=== PATIENT | female | born 1980 | race Caucasian/White ===

== ENCOUNTER 2021-09-27 13:11 | Emergency (ER) | payer OTHER ==
[2021-09-27 13:42] VITALS: PULSE 74; O2SAT 98
[2021-09-27] MEDS ORDERED: TORAdol 30 mg Injection IM ONE (13:54)
[2021-09-27] MEDS ORDERED: TORAdol 30 mg Injection ONE (13:55)
--- NOTE | 2021-09-27 14:00 | ERPHSYRPT ---
- History of Present Illness Source: patient Exam Limitations: no limitations Patient Subjective Stated Complaint: Got sunburned all over body d/t being out in sun at softball game yesterday. Triage Nursing Assessment: Patient c/o sunburn to face, arms, legs, s/p being out in sun all day yesterday. States very painful, has no other complaints. States various burn creams used with little improvement in pain. AAox3, walked in, pleasant mood, redness to face, arms, and legs noted. Physician History: 41 yo wf w 1st degree sunburn of face/chest/legs/arms. Pt denies nausea/fever and is able to hold down fluids. She watched several softball games yesterday wo sunscreen. Timing/Duration: yesterday Quality: burning Severity: mild Location: generalized Possible Causes: other (Sunburn) Associated Symptoms: No blisters, No change in skin texture, No difficulty breathing, No edema, No fever, No flushing, No headache, No hives, No jaundice, No malaise, No nasal congestion, No numbness, No pallor, No paresthesia, No petechiae, No rash, No sore throat Allergies/Adverse Reactions: No Known Drug Allergies Allergy (Verified 10/20/14 03:07) Home Medications: Ibuprofen [Advil] 3 tab PO Q6H PRN PRN 02/09/15 [History] Hx Tetanus, Diphtheria Vaccination/Date Given: No Hx Influenza Vaccination/Date Given: No Hx Pneumococcal Vaccination/Date Given: No Travel Risk - International Travel Have you traveled outside of the country in past 3 weeks: No - Coronavirus Screening Are you exhibiting any of the following symptoms?: No Close contact with a COVID-19 positive Pt in past 14-21 Days: No - Vaccine Status Have you recieved a Covid-19 vaccination: No - Review of Systems Constitutional: No Symptoms Eyes: No Symptoms Ears, Nose, & Throat: No Symptoms Respiratory: No Symptoms Cardiac: No Symptoms Abdominal/Gastrointestinal: No Symptoms Genitourinary Symptoms: No Symptoms Musculoskeletal: No Symptoms Neurological: No Symptoms Psychological: No Symptoms Endocrine: No Symptoms Hematologic/Lymphatic: No Symptoms Immunological/Allergic: No Symptoms - Past Medical History Pertinent Past Medical History: Yes Neurological History: No Pertinent History ENT History: No Pertinent History Cardiac History: No Pertinent History Respiratory History: No Pertinent History Endocrine Medical History: No Pertinent History Musculoskeletal History: Other GI Medical History: No Pertinent History History: No Pertinent History Psycho-Social History: Anxiety, Depression Female Reproductive Disorders: No Pertinent History Other Medical History: lupus and hosrt term memory loss, hx of uti's - Past Surgical History Past Surgical History: Yes Neuro Surgical History: No Pertinent History Cardiac: No Pertinent History Respiratory: No Pertinent History Gastrointestinal: No Pertinent History Genitourinary: No Pertinent History Musculoskeletal: No Pertinent History Female Surgical History: Section, Other Other Surgical History: 2 and a d&c in september 2014 - Social History Smoking Status: Never smoker Exposure to second hand smoke: No Drug Use: none Patient Lives Alone: No Significant Family History: no pertinent family hx - Female History Hx Last Menstrual Period: depo provera injection Hx Now: No - Nursing Vital Signs Nursing Vital Signs: Initial Vital Signs Temperature 98.5 F 09/27/21 13:29 Pulse Rate 74 09/27/21 13:29 Respiratory Rate 16 09/27/21 13:29 Blood Pressure 129/91 09/27/21 13:29 O2 Sat by Pulse Oximetry 98 09/27/21 13:29 Pain Scale Pain Intensity 9 WNL - Physical Exam General Appearance: no apparent distress Eye Exam: PERRL/EOMI, eyes nml inspection Ears, Nose, Throat Exam: normal ENT inspection, TMs normal, pharynx normal, brandin st mucous membranes Neck Exam: normal inspection, non-tender, supple, full range of motion, No meningismus, No mass, No Brudzinski, No Kernig's Respiratory Exam: normal breath sounds, lungs clear, airway intact Cardiovascular Exam: regular rate/rhythm, normal heart sounds, normal peripheral pulses, capillary refill <2 sec, No murmur Gastrointestinal/Abdomen Exam: soft, normal bowel sounds, No tenderness Back Exam: normal inspection, normal range of motion Extremity Exam: other (1st degree solar johansen to B upper/lower extremities) Neurologic Exam: alert, oriented x 3, cooperative, shipping manager II-XII nml as tested, normal mood/affect, nml cerebellar function, nml station & gait, sensation nml, No motor deficits, No sensory deficit Skin Exam: other (1st degree solar johansen to chest/face/upper-lower ex tremities/No bullae) SpO2 Interpretation: normal SpO2: 98 O2 Delivery: Room Air - Course Nursing assessment & vital signs reviewed: Yes Ordered Tests: Medication Summary Discontinued Medications Generic Name Dose Route Start Last Admin Trade Name Ritchie PRN Reason Stop Dose Admin Ketorolac Tromethamine 60 mg 09/27/21 13:54 09/27/21 14:06 Ketorolac Tromethamine 30 Mg/Ml Inj IM 09/27/21 13:55 60 mg STAT ONE Administration Ketorolac Tromethamine Confirm 09/27/21 13:55 Ketorolac Tromethamine 30 Mg/Ml Inj Administered 09/27/21 13:56 Dose 60 mg .ROUTE .STK-MED ONE - Progress Progress Note: 09/27/21 13:59 60mg IM Toradol Counseled pt/family regarding: diagnosis, need for follow-up - Departure Departure Disposition: Home Clinical Impression: Sunburn of first degree Condition: Stable Critical Care Time: No Referrals: MELANIA RAZO MD [Primary Care Provider] - Follow up/PCP as directed Instructions: Play It Safe in the Sun, Sunburn (DC) Additional Instructions: Aloe gel Drink plenty of fluids Motrin 400mg every 6hours as needed/Tylenol every 6 hours
[2021-09-27 14:20] VITALS: BP 131/67
== END 2021-09-27 14:14 | disposition home or self-care (01) ==
LOC: ED 13:11
DX: L55.0 Sunburn of first degree (principal)
CPT/HCPCS: 96372; 99283; J1885

== ENCOUNTER 2023-10-05 07:43 | Emergency (ER) | payer OTHER ==
--- NOTE | 2023-10-05 07:46 | ERPHSYRPT ---
- History of Present Illness Time Seen by Provider: 10/05/23 07:46 Historian: patient Exam Limitations: no limitations Physician History: This is a 43-year-old white female patient of Dr. Razo who has a history of migraine headaches, peripheral neuropathy, asthma, fibromyalgia, anxiety, depression and systemic lupus erythematosus and presents to the emergency room with palpitation sensation in her chest as well as lower bilateral chest pain. Pain intermittently radiates into her back between her scapulae. She denies shortness of breath. She has not had a fever or cough. She has had no nausea vomiting or diarrhea symptoms. Patient states she is never had this type of sensation before. However, in the last 3 weeks she has noticed the symptoms intermittently. Symptoms are worse when lying flat and improve and even resolve when standing upright. Patient's gallbladder is still in place. Patient ate brawtwurst sausage last evening. Timing/Duration: today Activities at Onset: rest Quality: sharpness Location: other (Merrily bilateral lower chest) Chest Pain Radiation: back (Between her scapulae) Severity of Pain-Max: mild Severity of Pain-Current: mild Modifying Factors: Improves With: lying down (Worsens), change in position (Standing up improves) Associated Symptoms: palpitations, No abdominal pain, No shortness of breath Prior Chest Pain/Cardiac Workup: no prior chest pain Nitro Today/Relief: no nitro taken today Aspirin Treatment Today: 81 mg x 4, provided by ED Allergies/Adverse Reactions: No Known Drug Allergies Allergy (Verified 10/05/23 07:44) Home Medications: Ibuprofen [Advil] 3 tab PO Q6H PRN PRN 02/09/15 [History] Propranolol HCl [Propranolol HCl ER] 60 mg PO DAILY 10/05/23 [History] Hx Tetanus, Diphtheria Vaccination/Date Given: No Hx Influenza Vaccination/Date Given: No Hx Pneumococcal Vaccination/Date Given: No Travel Risk - International Travel Have you traveled outside of the country in past 3 weeks: No - Emerging Infectious Disease Are you exhibiting symptoms associated with any current EIDs: No - Review of Systems Constitutional: No Symptoms Eyes: No Symptoms Ears, Nose, & Throat: No Symptoms Respiratory: No Symptoms Cardiac: Chest Pain, Palpitations Abdominal/Gastrointestinal: No Symptoms Genitourinary Symptoms: No Symptoms Musculoskeletal: No Symptoms Skin: No Symptoms Neurological: No Symptoms Psychological: No Symptoms Endocrine: No Symptoms Hematologic/Lymphatic: No Symptoms - Past Medical History Pertinent Past Medical History: Yes Neurological History: Migraines, Peripheral Neuropathy ENT History: No Pertinent History Cardiac History: No Pertinent History Respiratory History: Asthma Endocrine Medical History: No Pertinent History Musculoskeletal History: Fibromyalgia GI Medical History: No Pertinent History History: No Pertinent History Psycho-Social History: Anxiety, Depression Female Reproductive Disorders: No Pertinent History Other Medical History: PMHX: ANXIETY, DEPRESSION, LUPUS ERYTHMATOSUS, - Past Surgical History Past Surgical History: Yes Neuro Surgical History: No Pertinent History Cardiac: No Pertinent History Respiratory: No Pertinent History Gastrointestinal: No Pertinent History Genitourinary: No Pertinent History Musculoskeletal: No Pertinent History Female Surgical History: Section, Other Other Surgical History: 2 and a d&c in september 2014 Significant Family History: no pertinent family hx - Social History Smoking Status: Never smoker Exposure to second hand smoke: No Drug Use: none Patient Lives Alone: No - Nursing Vital Signs Nursing Vital Signs: Initial Vital Signs Temperature 97.9 F 10/05/23 07:47 Pulse Rate 75 10/05/23 07:47 Respiratory Rate 12 10/05/23 07:47 Blood Pressure 146/102 10/05/23 07:47 O2 Sat by Pulse Oximetry 99 10/05/23 07:47 Pain Scale Pain Intensity 9 - Physical Exam General Appearance: no apparent distress, alert, anxiety Eye Exam: PERRL/EOMI, eyes nml inspection Ears, Nose, Throat Exam: normal ENT inspection, moist mucous membranes Neck Exam: normal inspection, non-tender, supple, full range of motion Respiratory Exam: normal breath sounds, lungs clear, airway intact, No chest tenderness, No respiratory distress Cardiovascular Exam: regular rate/rhythm, normal heart sounds, normal peripheral pulses Gastrointestinal/Abdomen Exam: soft, normal bowel sounds, No tenderness Pelvic Exam: not done Rectal Exam: not done Back Exam: normal inspection, normal range of motion, No CVA tenderness, No vertebral tenderness Extremity Exam: normal inspection, normal range of motion, pelvis stable Neurologic Exam: alert, oriented x 3, cooperative, veterinary technician II-XII nml as tested, nml cerebellar function, nml station & gait, sensation nml Skin Exam: normal color, warm, dry Lymphatic Exam: No adenopathy SpO2 Interpretation: normal O2 Delivery: Room Air - Course Nursing assessment & vital signs reviewed: Yes EKG Interpreted by Me: RATE (73), Sinus Rhythm, NORMAL AXIS, NORMAL INTERVALS, NORMAL QRS, NORMAL ST-T, Other (There are no acute ischemic changes on today's twelve-lead EKG. No acute ischemic changes on today's twelve-lead EKG.) Ordered Tests: Active Orders 24 hr Category Date Time Status Diesel Inspector STAT Care 10/05/23 08:06 Active EKG-ER Only STAT Care 10/05/23 08:05 Active IV Insertion STAT Care 10/05/23 08:05 Active Pulse Oximetry (ED) STAT Care 10/05/23 08:06 Active CHEST 1 VIEW (PORTABLE) Stat Exams 10/05/23 08:06 Completed CHEST WITH CONTRAST [CT] Stat Exams 10/05/23 08:53 Completed AMYLASE Stat Lab 10/05/23 07:45 Completed CBC W DIFF Stat Lab 10/05/23 07:45 Completed CMP Stat Lab 10/05/23 07:45 Completed D-DIMER QUANTITATIVE Stat Lab 10/05/23 07:45 Completed LIPASE Stat Lab 10/05/23 07:45 Completed MAGNESIUM Stat Lab 10/05/23 07:45 Completed TROPONIN Q4H Lab 10/05/23 07:45 Completed TROPONIN Q4H Lab 10/05/23 12:15 Ordered TROPONIN Q4H Lab 10/05/23 16:15 Ordered Medication Summary Discontinued Medications Generic Name Dose Route Start Last Admin Trade Name Freq PRN Reason Stop Dose Admin Aspirin 324 mg 10/05/23 08:06 10/05/23 08:09 Aspirin 81 Mg Tab.Chew PO 10/05/23 08:07 324 mg STAT ONE Administration Aspirin Confirm 10/05/23 08:09 Aspirin 81 Mg Tab.Chew Administered 10/05/23 08:10 Dose 324 mg .ROUTE .STK-MED ONE Sodium Chloride 500 mls @ 500 mls/hr 10/05/23 08:52 10/05/23 09:09 Sodium Chloride 0.9% 500 Ml IV 10/05/23 09:51 500 mls/hr .Q1H ONE Administration Sodium Chloride Confirm 10/05/23 09:06 Sodium Chloride 0.9% 1000 Ml Administered 10/05/23 09:07 Dose 1,000 mls @ ud .ROUTE .STK-MED ONE Sodium Chloride Confirm 10/05/23 09:07 Sodium Chloride 0.9% 500 Ml Administered 10/05/23 09:08 Dose 500 mls @ ud IV .STK-MED ONE Lab/Rad Data: Laboratory Result Diagrams 10/05/23 07:45 10/05/23 07:45 Laboratory Results 10/05/23 10/05/23 10/05/23 Range/Units 07:45 07:45 07:45 WBC (4.0-10.5) x10^3/uL RBC (4.1-5.4) x10^6/uL Hgb (12.0-16.0) g/dL Hct (35-47) % MCV (78-100) fL MCH (26-32) pg MCHC (32-36) g/dL RDW (11.5-14.0) % Plt Count (150-450) x10^3/uL MPV (7.5-11.0) fL Gran % (36.0-66.0) % Immature Gran % (Auto) (0.00-0.4) % Nucleat RBC Rel Count (0.00-0.1) % Eos # (Auto) (0-0.5) x10^3/uL Immature Gran # (Auto) (0.00-0.03) x10^3u/L Absolute Lymphs (auto) (1.0-4.6) x10^3/uL Absolute Monos (auto) (0.0-1.3) x10^3/uL Absolute Nucleated RBC (0.00-0.01) x10^3u/L Lymphocytes % (24.0-44.0) % Monocytes % (0.0-12.0) % Eosinophils % (0.00-5.0) % Basophils % (0.0-0.4) % Absolute Granulocytes (1.4-6.9) x10^3/uL Basophils # (0-0.4) x10^3/uL D-Dimer 1.25 H* (0.0-0.50) mg/L Sodium 137 (135-145) mmol/L Potassium 3.7 (3.5-5.1) mmol/L Chloride 109 H (98-107) mmol/L Carbon Dioxide 20 L (22-30) mmol/L Anion Gap 12.2 (5-15) MEQ/L BUN 14 (7-17) mg/dL Creatinine 0.71 (0.52-1.04) mg/dL Estimated GFR 106.8 ML/MIN Glucose 102 (74-106) mg/dL Calcium 8.7 (8.4-10.2) mg/dL Magnesium 2.2 (1.6-2.3) mg/dL Total Bilirubin 0.70 (0.2-1.3) mg/dL AST 23 (14-36) U/L ALT 21 (0-35) U/L Alkaline Phosphatase 61 (38-126) U/L Troponin I < 0.012 (0.000-0.033) ng/mL Serum Total Protein 6.7 (6.3-8.2) g/dL Albumin 3.8 (3.5-5.0) g/dL Amylase 68 (30-110) U/L Lipase 123 (23-300) U/L 10/05/23 Range/Units 07:45 WBC 7.6 (4.0-10.5) x10^3/uL RBC 3.75 L (4.1-5.4) x10^6/uL Hgb 12.0 (12.0-16.0) g/dL Hct 35.5 (35-47) % MCV 94.7 (78-100) fL MCH 32.0 (26-32) pg MCHC 33.8 (32-36) g/dL RDW 13.0 (11.5-14.0) % Plt Count 315 (150-450) x10^3/uL MPV 9.2 (7.5-11.0) fL Gran % 64.9 (36.0-66.0) % Immature Gran % (Auto) 0.3 (0.00-0.4) % Nucleat RBC Rel Count 0.0 (0.00-0.1) % Eos # (Auto) 0.10 (0-0.5) x10^3/uL Immature Gran # (Auto) 0.02 (0.00-0.03) x10^3u/L Absolute Lymphs (auto) 2.01 (1.0-4.6) x10^3/uL Absolute Monos (auto) 0.42 (0.0-1.3) x10^3/uL Absolute Nucleated RBC 0.00 (0.00-0.01) x10^3u/L Lymphocytes % 26.4 (24.0-44.0) % Monocytes % 5.5 (0.0-12.0) % Eosinophils % 1.3 (0.00-5.0) % Basophils % 1.6 (0.0-0.4) % Absolute Granulocytes 4.94 (1.4-6.9) x10^3/uL Basophils # 0.12 (0-0.4) x10^3/uL D-Dimer (0.0-0.50) mg/L Sodium (135-145) mmol/L Potassium (3.5-5.1) mmol/L Chloride (98-107) mmol/L Carbon Dioxide (22-30) mmol/L Anion Gap (5-15) MEQ/L BUN (7-17) mg/dL Creatinine (0.52-1.04) mg/dL Estimated GFR ML/MIN Glucose (74-106) mg/dL Calcium (8.4-10.2) mg/dL Magnesium (1.6-2.3) mg/dL Total Bilirubin (0.2-1.3) mg/dL AST (14-36) U/L ALT (0-35) U/L Alkaline Phosphatase (38-126) U/L Troponin I (0.000-0.033) ng/mL Serum Total Protein (6.3-8.2) g/dL Albumin (3.5-5.0) g/dL Amylase (30-110) U/L Lipase (23-300) U/L - Progress Progress: improved, re-examined Air Movement: good Progress Note: 10/05/23 08:27 My medical decision making and the assignment of moderate complexity to this patient's medical issue today is based on review of the patient's past medical history, review of the patient's medication list, review the patient drug a llergy list, history present illness and physical findings on examination. The workup in this patient includes placement of intravenous line, twelve-lead EKG, CBC, CMP, D-dimer, troponin level, amylase, lipase, magnesium level, chest x- ray. The differential diagnosis includes anxiety about health, myocardial infarction, pulmonary embolus, electrolyte abnormalities, arrhythmias, gallbladder issues 10/05/23 09:34 I interpreted the patient's laboratory data results. The D-dimer is significantly elevated. We will order a CT scan of the chest with contrast to evaluate for pulmonary embolism. The remainder of the results of the patient's workup does not suggest any acute or emergent medical issue. Chest x-ray was interpreted by the radiologist and I reviewed the impression. Impression shows a normal chest x-ray study. 10/05/23 10:[address] scan of the chest with contrast was performed and interpreted by the radiologist. No evidence for pulmonary embolus. However, there is an abnorma lly distended gallbladder with a gallstone present. There is also associated pericholecystic fluid. This was discussed in detail with the patient. Blood Culture(s) Obtained: No Antibiotics given: No Counseled pt/family regarding: lab results, diagnosis, need for follow-up, rad results Medical Desision Making - Diagnostic Testing Diagnostic test were ordered, analyzed, and reviewed by me: Yes Radiological Interpretation: Reviewed by me, Teleradiologist Report - Risk of complications Low Risk: Low risk of morbidity from additional dx testing or treatment - Departure Departure Disposition: Home Clinical Impression: Nonspecific chest pain, Palpitations, Cholecystitis, Cholelithiasis Condition: Stable Critical Care Time: No Referrals: MELANIA RAZO MD [Primary Care Provider] - Follow up/PCP as directed Additional Instructions: Drink plenty of fluids. Avoid fatty greasy spicy foods. Follow-up with your primary care provider today, 10/05/2023, to make arrangements for follow-up appointment for further evaluation and management to be seen in the next 3 days.
[2023-10-05 07:48] VITALS: TEMP 97.9
[2023-10-05] MEDS: BABY ASPIRIN 81 MG CHEW PO ONE (08:09)
[2023-10-05] MEDS ORDERED: BABY ASPIRIN 81 MG CHEW ONE (08:09)
[2023-10-05 08:33] LABS: Absolute Neutrophil Ct (ANC) 4.94 x10^3/uL (1.4-6.9); BASOPHIL % 1.6 % (0.0-0.4); Basophil (Absolute #) 0.12 x10^3/uL (0-0.4); Eosinophil % 1.3 % (0.00-5.0); Hematocrit 35.5 % (35-47); IMMATURE GRAN # 0.02 x10^3u/L (0.00-0.03); IMMATURE GRAN % 0.3 % (0.00-0.4); Lymphocyte (Absolute #) 2.01 x10^3/uL (1.0-4.6); Lymphocytes % 26.4 % (24.0-44.0); Mean Cell Volume 94.7 fL (78-100); Mean Corpuscular Hgb Concent. 33.8 g/dL (32-36); Mean Platelet Volume 9.2 fL (7.5-11.0); Monocyte (Absolute #) 0.42 x10^3/uL (0.0-1.3); Monocytes % 5.5 % (0.0-12.0); Neutrophil % 64.9 % (36.0-66.0); Platelet Count 315 x10^3/uL (150-450); Red Blood Count 3.75 x10^6/uL (4.1-5.4); White Blood Count 7.6 x10^3/uL (4.0-10.5)
[2023-10-05 08:35] LABS: ALBUMIN 3.8 g/dL (3.5-5.0); ANION GAP 12.2 MEQ/L (5-15); BILIRUBIN,TOTAL 0.7 mg/dL (0.2-1.3); Calcium 8.7 mg/dL (8.4-10.2); Creatinine 1 0.71 mg/dL (0.52-1.04); EST GLOMERULAR FILTRATION RATE 106.8 ML/MIN; MAGNESIUM 2.2 mg/dL (1.6-2.3); Potassium 3.7 mmol/L (3.5-5.1); Total Protein 6.7 g/dL (6.3-8.2)
--- NOTE | 2023-10-05 09:01 | XRAY ---
Indication: Chest pain. Comparison: August 19, 2020 Portable chest again demonstrates normal heart, lungs, and bony thorax.
[2023-10-05] MEDS ORDERED: Sodium Chloride 0.9% 1000 ML 0 ML ONE (09:06)
[2023-10-05] MEDS ORDERED: Sodium Chloride 0.9% 500 ML 500 ML IV ONE (09:07)
[2023-10-05] MEDS: Sodium Chloride 0.9% 500 ML 500 ML IV ONE (09:09)
[2023-10-05 09:59] VITALS: O2SAT 100
--- NOTE | 2023-10-05 10:13 | XRAY ---
Indication: Chest pain 3 weeks. Elevated d-dimer. Multiple contiguous axial images obtained through the chest using 80 cc Isovue 370 contrast and PE protocol. Comparison: None Good opacification pulmonary arteries to include lobar and segmental branches. No pulmonary was. Heart is not enlarged. Aorta is normal in course and caliber. No pathologic mediastinal/hilar lymphadenopathy. Lungs inflated and clear. Bony thorax intact with minimal degenerative changes throughout the spine. Limited upper abdomen demonstrates abnormally distended gallbladder with 2 cm gallstone and pericholecystic fluid. Impression: 1. Abnormal distended gallbladder with gallstone and pericholecystic fluid favoring acute cholecystitis. 2. Otherwise normal CT chest pulmonary embolus exam.
[2023-10-05 10:22] VITALS: BP 127/83; PULSE 73; RESP 19
== END 2023-10-05 10:32 | disposition home or self-care (01) ==
LOC: ED 07:43
DX: R07.89 Other chest pain (principal); R00.2 Palpitations; K80.10 Calculus of gallbladder with chronic cholecystitis without obstruction; Z79.899 Other long term (current) drug therapy
CPT/HCPCS: 36000; 36415; 71045; 71260; 80053; 82150; 83690; 83735; 84484; 85025; 85379; 93005; 93041; 94760; 99284; A9270-GY

== ENCOUNTER 2023-11-21 08:15 | Day surgery (SDC) | payer OTHER ==
[~2023-11-21 08:15] MED LIST: Sensorcaine 0.25% 10 ML ONE
[2023-11-21 08:28] LABS: HCG URINE TEST NEGATIVE (NEGATIVE)
[2023-11-21 08:31] VITALS: RESP 18
[2023-11-21] MEDS ORDERED: Lactated Ringers 1,000 ML IV ONE (08:32)
[2023-11-21] MEDS: Lactated Ringers 1,000 ML IV SCH (08:59)
[2023-11-21] MEDS ORDERED: MEFOXIN 2 GM PREMIX** 2 GM/50 ML ML IV ONE (09:02)
[2023-11-21] MEDS: MEFOXIN 2 GM PREMIX** 2 GM/50 ML ML IV SCH (09:04)
[2023-11-21] MEDS ORDERED: Versed 2 MG/2 ML Injection ONE ×2 (10:25→10:36)
[2023-11-21] MEDS ORDERED: DIPRIVAN 200 MG/20 ML IV ONE (10:26)
[2023-11-21] MEDS ORDERED: Zofran 4 MG/2 ML VIAL ONE ×2 (10:26→12:10)
[2023-11-21] MEDS ORDERED: SUBLIMAZE 100 MCG/2 ML ONE ×2 (10:26→12:10)
[2023-11-21] MEDS ORDERED: TORAdol 30 mg Injection ONE (10:26)
[2023-11-21] MEDS ORDERED: Quelicin Fliptop 200 MG/10 ML ONE (10:26)
[2023-11-21] MEDS ORDERED: Decadron 4 MG INJ ONE ×2 (10:26→11:04)
[2023-11-21] MEDS ORDERED: ROCURONIUM BROMIDE IV ONE (10:26)
[2023-11-21] MEDS ORDERED: Xylocaine-Mpf 2% 5 Ml Vial ONE (10:58)
--- NOTE | 2023-11-21 11:23 | HP ---
HISTORY AND PHYSICAL HISTORY OF PRESENT ILLNESS: The patient is a 43-year-old female with history of arthritis, headache or migraines, lupus, neuropathy, fibromyalgia, has had some right upper quadrant pain, some mid lower back pain. No vomiting. Had attack of nausea once. CT showed cholelithiasis. Going on for the past month and a half or so, worse with rest. She denied any liver problems. PAST MEDICAL HISTORY: As mentioned above. HOME MEDICATIONS: Sumatriptan, propranolol, ibuprofen, hydroxychloroquine, duloxetine, Depo-Provera, albuterol, budesonide aerosol inhaler. ALLERGIES: No known drug allergies. PAST SURGICAL HISTORY: Tarsal tunnel of right foot in the past, Had in the past. SOCIAL HISTORY: No smoking. Occasional alcohol use. FAMILY HISTORY: Negative with regard to this problem. REVIEW OF SYSTEMS: Twelve systems reviewed. No chest pain or palpitations. Other systems negative or noncontributory as above and per preadmission questionnaire. Chronic illnesses as noted above. PHYSICAL EXAMINATION: GENERAL: Height 5 feet 4 inches. BMI 26.61. No acute distress. HEENT: Sclerae nonicteric. Extraocular movements intact. NECK: No JVD. CHEST: Equal excursion, nonlabored breathing, breath sounds symmetrical. CARDIOVASCULAR: Regular rate and rhythm. ABDOMEN: Soft. No peritoneal signs. EXTREMITIES: No cyanosis or edema. She does have some arthritis. NEUROLOGIC: Alert, oriented, moving extremities symmetrically. PSYCHIATRIC: Appropriate mood and affect. SKIN: Dry. IMPRESSION: Upper abdominal pain, gallstones. Feel she probably has acute exacerbation of chronic cholecystitis symptomatic cholelithiasis. Recommend cholecystectomy. Shown the gallbladder pamphlet or risk sheet. Explained the procedure in detail but not limited to risks and benefits explained in detail including but not limited to risk of bleeding or infection, risk of trocar injury or hernia, risk of bile leak, bile duct injury, retained stone or sludge possibly requiring further procedure either open or ERCP, general risk of anesthesia, DVT, PE, pneumonia, risk of aches and pains, bloating, constipation or loose stools possibly chronic in nature, possibility of no improvement of preoperative symptoms, possibly requiring for further workup or studies or endoscopy or other referrals. We will proceed with lap henrique, or possible open, under general anesthesia as an outpatient. Will continue medications for migraines, lung disease, and lupus and fibromyalgia or other chronic illnesses as noted above. Will proceed with laparoscopic cholecystectomy, or possible open, as an outpatient.
[2023-11-21] MEDS ORDERED: Hydromorphone 1 mg/ml Injection ONE (12:27)
[2023-11-21 13:02] VITALS: TEMP 97
[2023-11-21 13:16] VITALS: BP 115/82; PULSE 72; O2SAT 98
--- NOTE | 2023-11-21 15:25 | OP ---
SURGERY DATE/TIME: 11/21/2023 9275 - [id number] PREOPERATIVE DIAGNOSES: 1) Acute exacerbation of chronic cholecystitis and symptomatic cholelithiasis. 2) She had an incarcerated ventral hernia in her umbilical area. POSTOPERATIVE DIAGNOSES: 1) Acute exacerbation of chronic cholecystitis and symptomatic cholelithiasis. 2) She had an incarcerated ventral hernia in her umbilical area. PROCEDURES: 1) Laparoscopic cholecystectomy. 2) Repair of 1.5 cm incarcerated ventral hernia with sutures. SURGEON: Chase Harvey MD ANESTHESIA: General. ESTIMATED BLOOD LOSS: Minimal. COMPLICATIONS: There were no immediate complications. INDICATIONS: As noted above. Consent was obtained. DESCRIPTION OF PROCEDURE AND FINDINGS: Patient was taken to the operating room. General anesthesia was induced. The abdomen was prepped and draped in usual sterile fashion. Noted she did have an incarcerated hernia. She had supraumbilical piercing, and it was elected to go below the umbilicus. She did have incarcerated fat and a ventral hernia in the area, and it was felt that should be repaired at the beginning of the procedure as the port area near there likely would create a bigger hernia down the road. Therefore, Veress needle inserted and tested with saline. Pneumoperitoneum accomplished insufflating opening pressure of 0-15. Two 5 mm upper quadrant ports were placed under direct vision of the camera. Bladeless port and camera were inserted without difficulty. No evidence of any intra-abdominal injuries secondary to or Veress needle placement. Another 5 mm right upper quadrant port was placed and another 5 mm epigastric port. An 11 mm port was placed at the infraumbilical area. Had extensive omental adhesions to the gallbladder. These were taken down in posterior, lateral to anterior fashion. Had a lot of inflammation around the cystic duct and infundibular junction. Given her history of stones, this was slowly carefully skeletonized using a Kittner. Main cystic artery isolated and clipped x3 and divided directly on the gallbladder wall. The cystic duct had been skeletonized, so critical view was obtained both anteriorly and posteriorly, and once this was accomplished, the cystic duct was then clipped x3 and divided in usual fashion. The gallbladder was slowly and carefully dissected free from its dense attachment to the liver bed, clipping additional oozing side branches off the cystic vein and artery. Just prior to releasing from final attachments to the anterior edge of the liver, the liver bed re-inspected. Clips noted in place in the cystic duct and cystic artery stumps. No signs of any active bleeding or bile leakage. It was felt there is no benefit of drain placement. The gallbladder was released from final attachments to anterior edge of the liver, placed in the provided sac, pulled up through the infraumbilical port site. With a clamp, enlarged the site slightly. The sac was pulled up; however, the bag itself broke. There was no evidence of gallstone spillage. At this point, the gallbladder wall had been opened and decompressed of bile. Shon clamp was used to crush up the stones and pull them free, allowing the gallbladder to be pulled free and passed off. The fascial defect was closed with puncture closure device with #1 Vicryl. Good hemostasis noted. Copious amount of irrigation accomplished lateral to the liver and irrigating clear. Pneumoperitoneum decompressed. The fascial defect was closed with puncture closure device with #1 Vicryl. Wound was irrigated out again. The incarcerated fat in this umbilical-area hernia was about 1.5 cm or so, and it was carefully freed and pushed back down in the abdomen. This was closed with #1 Vicryl puncture closure device. This hernia was repaired with suture. There was no need for mesh at this juncture. The skin incision closed with 4-0 Vicryl. Marcaine 0.25% locally injected along the skin incision fascial defect. There were no immediate complications. Findings discussed with the family out in the waiting area. If hernia reoccurs down the road, then it could require mesh placement, but at this time, she did not appear to need mesh at the moment.
== END 2023-11-21 13:22 | disposition home or self-care (01) ==
LOC: SDC 08:15
PROVIDERS: ATTEND Surgery
DX: K80.10 Calculus of gallbladder with chronic cholecystitis without obstruction (principal); K43.6 Other and unspecified ventral hernia with obstruction, without gangrene
CPT/HCPCS: 81025; J0330; J0694; J1100; J1170; J1885; J2250; J2405; J2704; J3010; L0625